=== PATIENT | female | born 1955 | race Caucasian/White ===

== ENCOUNTER 2021-01-04 09:34 | Day surgery (SDC) | payer OTHER, SELFPAY ==
[~2021-01-04] VITALS: Ht 167.6 cm; Wt 97.5 kg
[~2021-01-04 09:34] MED LIST: ALBU90OI INH; ASPI325 PO; Alendronate Sod70 MG PO; CALCAVITDA; CALCIUM CARBON500 M4 PO; CHOLESTEROL MED; CYCL10 PO; Daily Multiple1 EACH PO; FIBER GUMMIES1 EACH PO; FISH1000; FISH1000 PO; HYDACE5 PO; LORA10; LOVA40 PO; MULVITA; Magnesium30 MG PO; ROSU10TA PO; VITAMIN D350000 UNIT PO
--- NOTE | 2021-01-04 12:01 | NUR ---
01/04/21 1201 Ladonna Dumont 7ML NORMAL SALINE USED TO ELEVATE HEPATIC FLEXURE POLYP #2
== END 2021-01-04 12:39 | disposition home or self-care (01) ==
LOC: ORSCSDS 09:34
DX: K62.5 Hemorrhage of anus and rectum (principal); D12.3 Benign neoplasm of transverse colon; D12.4 Benign neoplasm of descending colon; K64.8 Other hemorrhoids; K64.4 Residual hemorrhoidal skin tags; Z86.010 Personal history of colon polyps; Z80.0 Family history of malignant neoplasm of digestive organs; E78.5 Hyperlipidemia, unspecified; J45.909 Unspecified asthma, uncomplicated; E66.01 Morbid (severe) obesity due to excess calories; Z68.41 Body mass index [BMI] 40.0-44.9, adult; Z79.899 Other long term (current) drug therapy
CPT/HCPCS: 88305; J2704; J7120

== ENCOUNTER 2022-01-28 09:10 | Day surgery (SDC) | payer OTHER ==
[~2022-01-28] VITALS: Ht 167.6 cm; Wt 116.0 kg
[~2022-01-28 09:10] MED LIST changes: +CODACE30 PO; +CYCL10; +GABA100; +GABA300 PO; +NAPR220; +Neurontin 300300 MG PO
== END 2022-01-28 13:04 | disposition home or self-care (01) ==
LOC: ORSCSDS 09:10
PROVIDERS: Orthopaedic Surgery
PROC: 0SBD4ZZ Excision of Left Knee Joint, Percutaneous Endoscopic Approach (ICD-10-PCS; principal; 2022-01-28 10:30)
DX: S83.282A Other tear of lateral meniscus, current injury, left knee, initial encounter (principal); M17.12 Unilateral primary osteoarthritis, left knee; M94.262 Chondromalacia, left knee; J45.909 Unspecified asthma, uncomplicated; E78.5 Hyperlipidemia, unspecified; E66.01 Morbid (severe) obesity due to excess calories; Z68.41 Body mass index [BMI] 40.0-44.9, adult; Z79.899 Other long term (current) drug therapy
CPT/HCPCS: J0171; J1100; J1885; J2250; J2370; J2405; J2704; J2795; J3010; J7120

== ENCOUNTER 2022-05-14 06:58 | Day surgery (SDC) | payer OTHER ==
[~2022-05-14] VITALS: Ht 167.6 cm; Wt 116.6 kg
[~2022-05-14 06:58] MED LIST changes: +Children's Clari5 MG PO; +FERROUS GLUCON324 M7 PO; +IMIQUIMOD TOP; +MAGNESIUM OXID500 MG PO
--- NOTE | 2022-05-14 07:37 | NUR ---
Ambulatory in Day Surgery History, Chart, Medications and Allergies reviewed before start of procedure.Pre-Op teaching done. Pt verbalizes understanding. Patient States Post-Procedure ride home has been arranged.
--- NOTE | 2022-05-14 10:35 | NUR ---
Discharge instructions reviewed with patient. Patient verbalizes understanding. Copy given to patient to take home. Dressing to procedure site clean, dry, intact with no visible drainage, swelling, erythema or bruising noted. Discharged via wheelchair to private car for ride home.
== END 2022-05-14 10:35 | disposition home or self-care (01) ==
LOC: ORSCMMR 06:58 → ORD 07:30 → ORSCMMR 07:30
PROVIDERS: Surgery
PROC: 06BY0ZC Excision of Hemorrhoidal Plexus, Open Approach (ICD-10-PCS; principal; 2022-05-14 07:30)
DX: K62.5 Hemorrhage of anus and rectum (principal); K64.8 Other hemorrhoids; K64.4 Residual hemorrhoidal skin tags; E66.01 Morbid (severe) obesity due to excess calories; Z68.41 Body mass index [BMI] 40.0-44.9, adult; J45.909 Unspecified asthma, uncomplicated; E78.5 Hyperlipidemia, unspecified; Z79.899 Other long term (current) drug therapy
CPT/HCPCS: 88304; A9270; J1100; J2250; J2370; J2405; J2704; J2795; J3010; J7120

== ENCOUNTER 2025-03-30 08:52 | Day surgery (SDC) | payer OTHER ==
[~2025-03-30] VITALS: Ht 167.6 cm; Wt 119.1 kg
[~2025-03-30 08:52] MED LIST changes: +ATEN25 PO; +CLARITIN10 M1 PO; -Children's Clari5 MG PO; +Co Q-1010 MG
[2025-03-30] MEDS ORDERED: FURO20 PO (09:20)
[2025-03-30 09:22] VITALS: BP 121/78
--- NOTE | 2025-03-30 09:22 | NUR ---
03/30/25 0922 Luz Valadez History, Chart, Medications and Allergies reviewed before start of procedure. MONITOR INTACT WITH CONTINUOUS PULSE OXIMETRY, CONTINUOUS END TITAL CO2, 3-LEAD EKG AND INTERMITTENT BLOOD PRESSURE. 3-LEAD EKG REVIEWED WITH PHYSICIAN PRIOR TO START OF PROCEDURE. O2 VIA POM INTACT THROUGHOUT SEDATION/PROCEDURE. DR. ROCHA PROVIDING ANESTHESIA CARE, SEE ANESTHESIA RECORD.
--- NOTE | 2025-03-30 09:27 | NUR ---
Ambulatory in Day Surgery. History, Chart, Medications and Allergies reviewed before start of procedure. Patient confirms NPO status and agrees with scheduled surgery. Pre-Op teaching done. Pt verbalizes understanding. Patient States Post-Procedure ride home has been arranged.
[2025-03-30 10:09] VITALS: BP 122/86
[2025-03-30 10:15] VITALS: BP 126/89
--- NOTE | 2025-03-30 10:35 | NUR ---
Patient up to Ambulate independently. Gait steady. Discharge instructions reviewed with patient. Patient verbalizes understanding. Copy given to patient to take home. Patient States Post-Procedure ride home has been arranged. Discharged via wheelchair to private car for ride home. PT TOLERATING PO, REPORTS READY TO GO HOME.
== END 2025-03-30 10:36 | disposition home or self-care (01) ==
LOC: ORSCMMR 08:52 → ORSCSDS 10:00 → ORD 10:00 → ORSCSDS 10:15 → ORD 10:15 → ORSCMMR 10:36
PROVIDERS: Surgery
PROC: 0DBK8ZX Excision of Ascending Colon, Via Natural or Artificial Opening Endoscopic, Diagnostic (ICD-10-PCS; principal; 2025-03-30 10:00)
PROC: 0DBH8ZX Excision of Cecum, Via Natural or Artificial Opening Endoscopic, Diagnostic (ICD-10-PCS; principal; 2025-03-30 10:00)
DX: Z12.11 Encounter for screening for malignant neoplasm of colon (principal); Z86.0101 Personal history of adenomatous and serrated colon polyps; K63.5 Polyp of colon; K90.0 Celiac disease; E78.5 Hyperlipidemia, unspecified; E88.819 Insulin resistance, unspecified; I10 Essential (primary) hypertension; I73.9 Peripheral vascular disease, unspecified; Z79.899 Other long term (current) drug therapy
CPT/HCPCS: 88305; J2704; J7120